=== PATIENT | female | born 1960 | race Caucasian/White ===

== ENCOUNTER 2017-10-03 18:47 | Emergency (ER) | payer OTHER ==
[~2017-10-03 18:47] MED LIST: AMOXICILLIN/CL875 MG PO; CALCIUM600 M1 PO; CLARITIN10 MG PO; DIFLUCAN150 MG PO; FLONASE SPRAY50 MC1; MECLIZINE25 MG PO; MEDDOSEPAK PO
[2017-10-03 19:37] LABS: HEMATOCRIT 42.5 % (37.0-47.0); HEMOGLOBIN 14.2 g/dl (12.0-16.0); IMMATURE GRANULOCYTES 0.3 % (0.0-1.0); MEAN CELL VOLUME 89.5 fL CALC (80.0-100.0); MEAN CORPUSCULAR HGB 29.9 pG CALC (26.0-32.0); MEAN CORPUSCULAR HGB CONC 33.4 g/L CALC (32.0-36.0); NEUT# 10.27 thou/uL (2.00-7.15); RED BLOOD COUNT 4.75 mill/uL (4.20-5.60); RED CELL DISTRI WIDTH 12.4 % (11.5-15.5)
[2017-10-03 20:12] LABS: ALBUMIN 4.4 g/dL (3.2-5.0); ALKALINE PHOSPHATASE 70 u/l (38-126); ANION GAP 19 (6-22 (CALC)); BILIRUBIN, TOTAL 0.5 mg/dL (0.0-1.4); BUN 20 mg/dL (7-17); BUN/CREATININE RATIO 27 (12-20 (CALC)); CARBON DIOXIDE 25 mmol/l (22-30); CHLORIDE 101 mmol/l (95-108); CREATININE 0.7 mg/dL (0.5-1.0); GFR > 60 ML/MIN (>=60 (CALC)); GFR FOR AFR.AMER. > 60 ML/MIN (>=60 (CALC)); POTASSIUM 3.9 mmol/l (3.5-5.1); SGOT/AST 22 u/l (14-36); SGPT/ALT 30 u/l (9-52); SODIUM 141 mmol/l (137-146); TOTAL PROTEIN 7.3 g/dL (6.3-8.2)
[2017-10-03 21:39] LABS: URINE BILIRUBIN - DIPSTICK NEGATIVE (NEGATIVE); URINE BLOOD DIPSTICK NEGATIVE (NEGATIVE); URINE COLOR YELLOW; URINE GLUCOSE - DIPSTICK NEGATIVE (NEGATIVE); URINE KETONE NEGATIVE (NEGATIVE); URINE LEUK ESTERASE NEGATIVE (NEGATIVE); URINE NITRITE - DIPSTICK NEGATIVE (Negative); URINE PROTEIN - DIPSTICK NEGATIVE (NEG-TRACE); URINE SPECIFIC GRAVITY 1.015; URINE UROBILINOGEN - DIPSTICK 0.2 E.U./dL (0.2)
[2017-10-03 21:41] LABS: URINE CLARITY CLEAR
[2017-10-03] MEDS ORDERED: CIPROFLOXACN500 MG PO (23:46)
[2017-10-03] MEDS ORDERED: TRAMADOL HYDROC50 MG PO (23:46)
[2017-10-03] MEDS ORDERED: METRONIDAZOL500 MG PO (23:46)
[2017-10-04 00:10] VITALS: BP 104/52
== END 2017-10-04 00:10 | disposition home or self-care (01) | DRG 392 ==
LOC: ED 18:47
PROVIDERS: Family Medicine
DX: K57.32 Diverticulitis of large intestine without perforation or abscess without bleeding (principal)

== ENCOUNTER → 2018-04-08 | Outpatient (REF) | payer OTHER ==
[~2018-04-08] MED LIST changes: +CIPROFLOXACN500 MG PO; +METRONIDAZOL500 MG PO; +TRAMADOL HYDROC50 MG PO
== END | disposition home or self-care (01) | DRG 607 ==
LOC: ULTRASND 10:21
PROVIDERS: ATTEND Nurse Practitioner Adult Health
DX: R22.1 Localized swelling, mass and lump, neck (principal); G47.30 Sleep apnea, unspecified; E04.2 Nontoxic multinodular goiter